=== PATIENT | female | born 1975 | race Caucasian/White ===

== ENCOUNTER 2016-12-11 00:07 | Emergency (ER) | payer MEDICAID ==
[~2016-12-11] VITALS: Ht 154.9 cm; Wt 67.0 kg
[2016-12-11 00:50] VITALS: Ht 154.9 cm; Wt 67.0 kg
--- NOTE | 2016-12-11 02:25 | ERD ---
ER Documentation Chief Complaint Date/Time DATE: 12/11/16 TIME: 02:21 Chief Complaint Headache x6 days HPI 41-year-old female presents to emergency department for complaints of headache for 2 days. Patient complaining of headache, throbbing pain, 6/10 scale, not better or worse with anything. Patient denies any nausea or vomiting. Patient denies any fever or chills or neck pain. Patient denies any dizziness. Patient denies any head injury. Patient denies any runny nose, nasal congestion. Patient took ibuprofen for pain with mild relief. ROS All systems reviewed and are negative except as per history of present illness. Medications Home Meds Reported Medications [none] Unknown Strength No Conflict Check 12/11/16 Allergies Allergies: Coded Allergies: No Known Allergies (Verified Allergy, Mild, 07/11/14) PMhx/Soc Medical and Surgical Hx: pt denies Medical Hx, pt denies Surgical Hx History of Surgery: No Anesthesia Reaction: No Hx Neurological Disorder: No Hx Respiratory Disorders: No Hx Cardiac Disorders: No Hx Psychiatric Problems: No Hx Miscellaneous Medical Probl: No Hx Alcohol Use: No Hx Substance Use: No Hx Tobacco Use: No FmHx Family History: No coronary disease, No diabetes, No other Physical Exam Vitals Vital Signs Date Time Temp Pulse Resp B/P Pulse Ox O2 Delivery O2 Flow Rate FiO2 12/11/16 00:50 99.1 71 20 137/84 99 Physical Exam GENERAL: The patient is well developed and appropriate for usual state of health, in no apparent distress. CHEST: Clear to auscultation bilaterally. There are no rales, wheezes or rhonchi. HEART: Regular rate and rhythm. No murmurs, clicks, rubs or gallops. No S3 or S4. ABDOMEN: Soft, nontender and nondistended. Good bowel sounds. No rebound or guarding. No gross peritonitis. No gross organomegaly or masses. No Armijo sign or McBurney point tenderness. BACK: No midline or flank tenderness. EXTREMITIES: Equal pulses bilaterally. There is no peripheral clubbing, cyanosis or edema. No focal swelling or erythema. Full range of motion. Grossly neurovascularly intact. NEURO: Alert and oriented. Cranial nerves 2-12 intact. Motor strength in all 4 extremities with 5/5 strength. Sensation grossly intact. Normal speech and gait. Negative Romberg sign. Negative pronator drift. SKIN: There is no apparent rash or petechia. The skin is warm and dry. HEMATOLOGIC AND LYMPHATIC: There is no evidence of excessive bruising or lymphedema. No gross cervical, axillary, or inguinal lymphadenopathy. Results 24 hrs Current Medications Medications (Trade) Dose Ordered Sig/[place] Route PRN Reason Start Time Stop Time Status Last Admin Dose Admin Acetaminophen/ Butalbital/ Caffeine (Fioricet) 1 tab ONCE ONCE PO 12/11/16 02:30 12/11/16 02:31 DC Patient was given medication for pain here in emergency department, after treatment, patient verbalized feeling much better. Patient's pain is improved. PROCEDURE: CT BRAIN WITHOUT CONTRAST CLINICAL INDICATION: 41-year-old female with headaches. TECHNIQUE: The study was performed utilizing a [facility] 64-slice CT scanner. Direct axial sections were obtained from the foramen magnum to the vertex without the use of intravenous contrast material. Sagittal and coronal reformations were obtained. One or more the following dose reduction techniques were utilized: automated exposure control, adjustment of the mA and/or kV according to patient's size or use of iterative reconstruction technique. The images were viewed on a PACS workstation. CTD/vol = 44.5 mGy; Total Exam DLP = 630.2 mGy-cm. COMPARISON: None. FINDINGS: The ventricles have a normal size, shape and position. There is no evidence for mass effect or midline shift. There are no intracranial areas of abnormal attenuation. There is no evidence for acute intra or extra-axial blood. The bony calvarium is intact. There is minimal mucosal thickening within the partially visualized ethmoid air cells. No air-fluid levels are noted. The mastoid air cells are without significant soft tissue. IMPRESSION: 1. The intracranial contents are unremarkable on this noncontrast CT scan of the brain. 2. Minimal mucosal thickening partially visualized ethmoid air cells. .Supa Nina MD, Date Time Electronically viewed and signed by .Supa Nina MD, MD on 12/11/2016 02:59 .M/ CC: STACIE ALVARADO NP Procedures/MDM Medical Decision Making: Patient's symptoms of headache nonspecific at this time , possible tension headache, possible migraine headache. There is low suspicion for neurological emergencies at this time since patients neurologic exam is normal. Patient did not have any altered level consciousness, vomiting, changes in balance or memory and did not have any head injury. Patients CT scan of the head does not show any neurological emergencies at this time. Prescription: Fioricet Departure Diagnosis: Primary Impression: Headache Headache type: unspecified Headache chronicity pattern: acute headache Intractability: not intractable Qualified Code: R51 - Acute nonintractable headache, unspecified headache type Condition: Stable Patient Instructions: Self-Care for Headaches STACIE ALVARADO NP Dec 11, 2016 02:25
[2016-12-11] MEDS ORDERED: ACET/BUTAL/CAFF TAB PO ONE (02:30)
--- NOTE | 2016-12-11 02:59 | RADRPT ---
PROCEDURE: CT BRAIN WITHOUT CONTRAST CLINICAL INDICATION: 41-year-old female with headaches. TECHNIQUE: The study was performed utilizing a [employer] V[employer] 64-slice CT scanner. Direct axia l sections were obtained from the foramen magnum to the vertex without the use of intravenous contra st material. Sagittal and coronal reformations were obtained. One or more the following dose reduct ion techniques were utilized: automated exposure control, adjustment of the mA and/or kV according t o patient's size or use of iterative reconstruction technique. The images were viewed on a PACS [employer]. CTD/vol = 44.5 mGy; Total Exam DLP = 630.2 mGy-cm. COMPARISON: None. FINDINGS: The ventricles have a normal size, shape and position. There is no evidence for mass effect or midl ine shift. There are no intracranial areas of abnormal attenuation. There is no evidence for acute intra or extra-axial blood. The bony calvarium is intact. There is minimal mucosal thickening withi n the partially visualized ethmoid air cells. No air-fluid levels are noted. The mastoid air cells are without significant soft tissue. IMPRESSION: 1. The intracranial contents are unremarkable on this noncontrast CT scan of the brain. 2. Minimal mucosal thickening partially visualized ethmoid air cells. .Supa Nina MD, MD Date Time Electronically viewed and signed by .Supa Nina MD, on 12/11/2016 02:59 .M/
[2016-12-11] MEDS ORDERED: FIORICET PO (03:14)
[2016-12-11 03:26] VITALS: BP 134/90; PULSE 80; RESP 18; TEMP 97.8
== END 2016-12-11 03:26 | disposition home or self-care (01) ==
LOC: FTE 00:07
DX: R51 Headache (principal)
CPT/HCPCS: 70450; Z7502; Z7610

== ENCOUNTER 2018-05-04 09:32 | Emergency (ER) | END 2018-05-04 11:38 | disposition home or self-care (01) ==